=== PATIENT | female | born 1965 | race African-American/Black ===

== ENCOUNTER 2016-11-25 16:48 | Emergency (ER) | payer BC, OTHER ==
[~2016-11-25] VITALS: Ht 152.4 cm; Wt 67.0 kg
[2016-11-25 17:00] VITALS: Ht 152.4 cm; Wt 67.0 kg
[2016-11-25] MEDS ORDERED: SOD CHLORIDE 0.9% 1,000 ML IV STA (17:34)
[2016-11-25] MEDS ORDERED: ONDANSETRON 4 MG INJ IV STA (17:34)
[2016-11-25] MEDS ORDERED: morphine 2 MG INJ IV STA (17:34)
[2016-11-25] MEDS ORDERED: IBUP100T46 PO (17:40)
[2016-11-25 17:59] LABS: ADD SCAN DIFF NO
[2016-11-25 18:01] LABS: BASOPHILS % 0.5 % (0.0-2.0); EOSINOPHILS % 0.4 % (0.0-7.0); HEMATOCRIT 39.4 % (37.0-47.0); HEMOGLOBIN 12.9 g/dl (12.0-16.0); LYMPHOCYTES # 1.2 10^3/ul (0.8-2.9); LYMPHOCYTES % 21.9 % (15.0-51.0); MEAN CORPUSCULAR HEMOGLOBIN 27.6 pg (29.0-33.0); MEAN CORPUSCULAR HGB CONC 32.7 g/dl (32.0-37.0); MEAN CORPUSCULAR VOLUME 84.4 fl (82.0-101.0); MEAN PLATELET VOLUME 10.4 fl (7.4-10.4); MONOCYTE # 0.4 10^3/ul (0.3-0.9); MONOCYTES % 6.6 % (0.0-11.0); NEUTROPHIL # 3.9 10^3/ul (1.6-7.5); NEUTROPHILS % 70.2 % (39.0-77.0); PLATELET COUNT 277 10^3/UL (140-415); RED BLOOD COUNT 4.67 10^6/ul (4.20-5.40); RED CELL DISTRIBUTION WIDTH 14.6 % (11.5-14.5); WHITE BLOOD COUNT 5.5 10^3/ul (4.8-10.8)
[2016-11-25 18:13] LABS: POTASSIUM 3.4 mmol/L (3.5-5.1)
[2016-11-25 18:15] LABS: CREATININE 0.74 mg/dl (0.44-1.00)
[2016-11-25 18:16] LABS: ALBUMIN/GLOBULIN RATIO 1.56; BILIRUBIN,INDIRECT 0.6 mg/dl (0-1.1); BILIRUBIN,TOTAL 0.6 mg/dl (0.2-1.3); CALCIUM 9.8 mg/dl (8.4-10.2); TOTAL PROTEIN 8.2 g/dl (6.1-8.1)
[2016-11-25 18:36] LABS: ADD UMIC YES; URINE BILIRUBIN (Dip) NEGATIVE (NEGATIVE); URINE BLOOD (Dip) TRACE (NEGATIVE); URINE COLOR LT. YELLOW (YELLOW); URINE GLUCOSE (Dip) NEGATIVE (NEGATIVE); URINE KETONES (Dip) NEGATIVE (NEGATIVE); URINE LEUKOCYTE ESTERASE (Dip) NEGATIVE (NEGATIVE); URINE NITRITE (Dip) NEGATIVE (NEGATIVE); URINE TOTAL PROTEIN (Dip) NEGATIVE (NEGATIVE); URINE UROBILINOGEN (Dip) 0.2 E.U./dL (0.1-1.0)
[2016-11-25 19:03] LABS: BACTERIA,URINE FEW
--- NOTE | 2016-11-25 20:11 | RADRPT ---
PROCEDURE: CT Abdomen and Pelvis without contrast. CLINICAL INDICATION: Pain. TECHNIQUE: CT scan of the abdomen and pelvis was performed on a multidetector slice CT scanner. No intravenous contrast material was utilized. Sagittal and coronal reformatted images were obtained fr om the axial source images. Images were reviewed on a high-resolution PACS workstation. Exam CTDlvol = 8 mGy and DLP = 350 a Gy-cm. One of the following 3 dose reduction techniques were used: Automate d exposure control; adjustment of the mA and/or kV according to patient size; or use of iterative re construction technique. COMPARISON: None. FINDINGS: There is moderate stool throughout the colon. There is no obstruction or ileus. There is possible mild left and sigmoid colon wall thickening/colitis versus incomplete distension. The appendix is n ot distinctly visualized. There is no definite secondary evidence of appendicitis.. There is no niels dence for diverticulitis. There is mild pelvic free fluid. The liver is overall normal in size. No intrahepatic lesions are identified. The gallbladder is norm al in appearance. There is no definite biliary ductal dilation. Pancreas is normal in appearance. Th e spleen is unremarkable.. There are no adrenal masses. The aorta is normal caliber. Kidneys are normal in appearance without hydronephrosis, mass or calculus. There is no perinephric c ollection. Ureters are of normal caliber and without evidence for an obstructing calculus The urinar y bladder is contracted. The uterus and ovaries are not well characterized. Uterus is enlarged and 10.8 x 8.2 x 8.9 cm. The re is a 3.8 cm slightly dense probable fibroid in the anterior body and fundus. There is a probable exophytic 1.7 cm right fundal fibroid... Limited evaluation lung bases is unremarkable. There are mild degenerative facet changes of the lower lumbar spine. IMPRESSION: 1. Mild left and sigmoid colon wall thickening/colitis versus incomplete distension. 2. Mild pelvic free fluid. 3. Moderate stool throughout the colon. No obstruction or ileus. 4. Appendix not distinctly visualized. No secondary evidence for appendicitis. 5. No evidence for diverticulitis. 6. Enlarged uterus with multiple probable fibroids. Ovaries not adequately visualized. 7. Mild degenerative changes of the lower lumbar spine. RPTAT: HMVK .Reddy Dunn MD, MD Date Time Electronically viewed and signed by .Reddy Dunn MD, MD on 11/25/2016 20:10 .K/
[2016-11-25 21:15] VITALS: BP 147/79; PULSE 58; RESP 18
[2016-11-25] MEDS ORDERED: POLY17PO6 PO (21:30)
[2016-11-25] MEDS ORDERED: NAPR-688 PO (21:31)
[2016-11-25] MEDS ORDERED: CEPH-443 PO (21:31)
--- NOTE | 2016-11-25 21:51 | ERD ---
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 She had several episodes of diarrhea and then got feeling of tingling and hand shaking mild bilateral arms. She had no chest pain or shortness of breath. Had nausea but no vomiting. Denies headache or dizziness. States that she has abdominal pain is going on for about 7 years and her left abdomen with a feeling of fullness as well. Also has a burning suprapubic pain. ROS All systems reviewed and are negative except as per history of present illness. Medications Home Meds Active Scripts Naproxen* (Naproxen*) 500 Mg Tablet, 500 MG PO BID, #20 TAB Prov:GARY NICHOLSON 11/25/16 Cephalexin* (Keflex*) 500 Mg Capsule, 500 MG PO TID for 3 Days, CAP Prov:BHARATGARY 11/25/16 Polyethylene Glycol* (Miralax*) 17 Gm Powd.pack, 17 GM PO DAILY, #7 PACKET Prov:GARY NICHOLSON 11/25/16 Reported Medications Ibuprofen* (Ibuprofen*) 100 Mg Tab.chew, 200 MG PO Q6 Y for PAIN, TAB.CHEW 11/25/16 Allergies Allergies: Coded Allergies: No Known Allergy (Unverified , 11/25/16) PMhx/Soc Medical and Surgical Hx: pt denies Medical Hx, pt denies Surgical Hx Hx Alcohol Use: No Hx Substance Use: No Hx Tobacco Use: No Smoking Status: Never smoker Physical Exam Vitals Vital Signs Date Time Temp Pulse Resp B/P Pulse Ox O2 Delivery O2 Flow Rate FiO2 11/25/16 21:15 58 18 147/79 100 Room Air 11/25/16 17:00 98.1 74 20 141/90 99 Physical Exam Const: [] No distress Head: Atraumatic Eyes: Normal Conjunctiva ENT: Normal External Ears, Nose and Mouth. Resp: Clear to auscultation bilaterally Cardio: Regular rate and rhythm, no murmurs Abd: Soft, mild left-sided abdominal tenderness with mild suprapubic tenderness, no guarding or rebound, non distended. Normal bowel sounds Skin: No petechiae or rashes Back: No midline or flank tenderness Ext: No cyanosis, or edema Neur: Awake and alert and oriented 3, no focal deficits Psych: Normal Mood and Affect Result Diagram: 11/25/16174911/25/161749 Results 24 hrs Laboratory Tests Test 11/25/16 17:50 11/25/16 18:02 White Blood Count 5.510^3/ul Red Blood Count 4.6710^6/ul Hemoglobin 12.9g/dl Hematocrit 39.4% Mean Corpuscular Volume 84.4fl Mean Corpuscular Hemoglobin 27.6pg Mean Corpuscular Hemoglobin Concent 32.7g/dl Red Cell Distribution Width 14.6% Platelet Count 64435^3/UL Mean Platelet Volume 10.4fl Neutrophils % 70.2% Lymphocytes % 21.9% Monocytes % 6.6% Eosinophils % 0.4% Basophils % 0.5% Nucleated Red Blood Cells % 0.0/100WBC Neutrophils # 3.910^3/ul Lymphocytes # 1.210^3/ul Monocytes # 0.410^3/ul Eosinophils # 0.010^3/ul Basophils # 0.010^3/ul Nucleated Red Blood Cells # 0.010^3/ul Sodium Level 142mmol/L Potassium Level 3.4mmol/L Chloride Level 104mmol/L Carbon Dioxide Level 25mmol/L Anion Gap 16 Blood Urea Nitrogen 8mg/dl Creatinine 0.74mg/dl Glucose Level 123mg/dl Calcium Level 9.8mg/dl Total Bilirubin 0.6mg/dl Direct Bilirubin 0.00mg/dl Indirect Bilirubin 0.6mg/dl Aspartate Amino Transf (AST/SGOT) 21IU/L Alanine Aminotransferase (ALT/SGPT) 23IU/L Alkaline Phosphatase 61IU/L Total Protein 8.2g/dl Albumin 5.0g/dl Globulin 3.20g/dl Albumin/Globulin Ratio 1.56 Lipase 65U/L Urine Color LT. YELLOW Urine Clarity CLEAR Urine pH 8.0 Urine Specific [place] 1.010 Urine Ketones NEGATIVE Urine Nitrite NEGATIVE Urine Bilirubin NEGATIVE Urine Urobilinogen 0.2 E.U./dL Urine Leukocyte Esterase NEGATIVE Urine Microscopic RBC 2-5/HPF Urine Microscopic WBC 0-2/HPF Urine Epithelial Cells FEW Urine Bacteria FEW Urine Hemoglobin TRACE Urine Glucose NEGATIVE% Urine Total Protein NEGATIVE Current Medications Medications (Trade) Dose Ordered Sig/Aleksey Route PRN Reason Start Time Stop Time Status Last Admin Dose Admin Sodium Chloride (NS) 1,000 ml @ 1,000 mls/hr Q1H STAT IV 11/25/16 17:34 11/25/16 18:33 DC Morphine Sulfate (morphine) 2 mg ONCE STAT IV 11/25/16 17:34 11/25/16 17:37 DC Ondansetron HCl (Zofran Inj) 4 mg ONCE STAT IV 11/25/16 17:34 11/25/16 17:37 DC Procedures/MDM Acute viral enteritis in a patient with significant constipation. On repeat questioning that she said that she has normally constipated. She tries to drink a lot of water has not taken anything for it. She is also aware that she has uterine fibroids. She is treated with a liter of normal saline after which her hand tingling and shaking went away as it was likely from dehydration from some any bowel movements and nausea. In spite of having gastroenteritis she does have a significant stool but in the colon on the Rochelle prescribed her MiraLAX. She was worried about a burning sensation urination worried about possible urinary tract infection I'm going to give her Keflex for 3 days. Yumiko discharging with naproxen for the colitis and discomfort. Having her follow up with her primary care doctor to obtain in gastroenterology referral as she may benefit from colonoscopy. CT abdomen and pelvis interpretation: Retained stool throughout every part of the colon except for the sigmoid colon, mild wall thickening the sigmoid colon consistent with enteritis, uterine fibroids, no obstruction, no free air, no fractures Departure Diagnosis: Primary Impression: Chronic abdominal pain Additional Impression: Diarrhea Condition: Stable Patient Instructions: Treating Diarrhea, Constipation (Adult) Referrals: [facility] YOU HAVE RECEIVED A MEDICAL SCREENING EXAM AND THE RESULTS INDICATE THAT YOU DO NOT HAVE A CONDITION THAT REQUIRES URGENT TREATMENT IN THE EMERGENCY DEPARTMENT. FURTHER EVALUATION AND TREATMENT OF YOUR CONDITION CAN WAIT UNTIL YOU ARE SEEN IN YOUR DOCTORS OFFICE WITHIN THE NEXT 1-2 DAYS. IT IS YOUR RESPONSIBILITY TO MAKE AN APPOINTMENT FOR FOLOW-UP CARE. IF YOU HAVE A PRIMARY DOCTOR --you should call your primary doctor and schedule an appointment IF YOU DO NOT HAVE A PRIMARY DOCTOR YOU CAN CALL OUR PHYSICIAN REFERRAL HOTLINE AT IF YOU CAN NOT AFFORD TO SEE A PHYSICIAN YOU CAN CHOSE FROM THE FOLLOWING [facility] [address] [facility] [address] [facility] [address] [facility] [address] [facility] [facility] [phone] [facility]. [facility] [address] Additional Instructions: Call your primary care doctor TOMORROW for an appointment during the next 2-3 days. Obtain a referral for a assistant site manager. See the doctor sooner or return here if your condition worsens before your appointment time. GARY NICHOLSON DO Nov 25, 2016 21:51
== END 2016-11-25 21:45 | disposition home or self-care (01) ==
LOC: E/R 16:48 → EEVIPCON 16:48 → E/R 21:45
DX: R10.32 Left lower quadrant pain (principal); R11.0 Nausea
CPT/HCPCS: 36415; 74176; 80053; 81001; 83690; 85025; 99284; J7030; 81003

== ENCOUNTER → 2017-01-20 | Outpatient (CLI) | payer BC ==
[~2017-01-20] MED LIST: CEPH-443 PO; IBUP100T46 PO; NAPR-688 PO; POLY17PO6 PO
[2017-01-20 13:19] LABS: ADD UMIC YES; URINE BILIRUBIN (Dip) NEGATIVE (NEGATIVE); URINE BLOOD (Dip) TRACE (NEGATIVE); URINE COLOR LT. YELLOW (YELLOW); URINE GLUCOSE (Dip) NEGATIVE (NEGATIVE); URINE KETONES (Dip) NEGATIVE (NEGATIVE); URINE LEUKOCYTE ESTERASE (Dip) NEGATIVE (NEGATIVE); URINE NITRITE (Dip) NEGATIVE (NEGATIVE); URINE TOTAL PROTEIN (Dip) NEGATIVE (NEGATIVE); URINE UROBILINOGEN (Dip) 0.2 E.U./dL (0.1-1.0)
[2017-01-20 13:41] LABS: ALANINE AMINOTRANSFERASE 29 IU/L (13-69); ALBUMIN 4.9 g/dl (3.3-4.9); ALBUMIN/GLOBULIN RATIO 1.88; ALKALINE PHOSPHATASE 63 IU/L (42-121); AMYLASE 81 U/L (11-123); ANION GAP 11 (8-16); ASPARTATE AMINO TRANSFERASE 25 IU/L (15-46); BILIRUBIN,INDIRECT 0.9 mg/dl (0-1.1); BILIRUBIN,TOTAL 0.9 mg/dl (0.2-1.3); BLOOD UREA NITROGEN 8 mg/dl (7-20); CALCIUM 9.6 mg/dl (8.4-10.2); CARBON DIOXIDE 29 mmol/L (21-31); CHLORIDE 106 mmol/L (97-110); CHOL/HDL RATIO 2.6 RATIO; CHOLESTEROL 200 mg/dl (100-200); CREATININE 0.74 mg/dl (0.44-1.00); GLUCOSE 89 mg/dl (70-220); HDL CHOLESTEROL 75 mg/dl (37-92); POTASSIUM 3.8 mmol/L (3.5-5.1); SODIUM 142 mmol/L (135-144); TOTAL PROTEIN 7.5 g/dl (6.1-8.1); TRIGLYCERIDES 45 mg/dl (0-149)
[2017-01-20 13:50] LABS: IRON 75 ug/dl (35-150)
[2017-01-20 13:59] LABS: TOTAL IRON BINDING CAPACITY 427 ug/dl (241-421)
--- NOTE | 2017-01-20 14:05 | RADRPT ---
Vent Rate: 57 bpm RR Interval: 0 msec [place] Interval: 144 msec QRS Duration: 86 msec QT Interval: 454 msec QTC Interval: 441 msec P-R-T [place]: 67 - 38 - 39 degrees Sinus bradycardia T wave abnormality, consider anterior ischemia Abnormal ECG Electronically Signed By: Reddy Sanchez [id number]
[2017-01-20 16:34] LABS: FERRITIN 6.8 ng/ml (6.2-137.0); THYROID STIMULATING HORMONE 0.776 MIU/L (0.465-4.680)
[2017-01-20 17:02] LABS: C-REACTIVE PROTEIN < 0.5 mg/dl (0.0-0.9)
== END | disposition home or self-care (01) ==
LOC: LAB 12:26
PROVIDERS: ATTEND Internal Medicine
DX: R07.9 Chest pain, unspecified (principal)
CPT/HCPCS: 80053; 80061; 81001; 82150; 82728; 83540; 84443; 85651; 86140; 93005

== ENCOUNTER → 2017-02-19 | Outpatient (CLI) | payer BC ==
[2017-02-19 12:59] LABS: ADD UMIC YES; UR ASCORBIC ACID NEGATIVE (NEGATIVE); UR BACTERIA FEW /HPF (NONE SEEN); UR BILIRUBIN (Dip) NEGATIVE (NEGATIVE); UR BLOOD (Dip) 1+ mg/dL (NEGATIVE); UR CLARITY CLEAR (CLEAR); UR COLOR STRAW (YELLOW); UR GLUCOSE (Dip) NEGATIVE (NEGATIVE); UR KETONES (Dip) NEGATIVE (NEGATIVE); UR LEUKOCYTE ESTERASE (Dip) NEGATIVE Leu/ul (NEGATIVE); UR NITRITE (Dip) NEGATIVE (NEGATIVE); UR RBC 1 /HPF (0-5); UR SPECIFIC GRAVITY (Dip) 1.004 (1.003-1.030); UR SQUAMOUS EPITHELIAL CELL FEW /HPF (FEW); UR TOTAL PROTEIN (Dip) NEGATIVE (NEGATIVE); UR UROBILINOGEN (Dip) NEGATIVE (NEGATIVE)
== END | disposition home or self-care (01) ==
LOC: LAB 12:18
PROVIDERS: ATTEND Internal Medicine
DX: R31.9 Hematuria, unspecified (principal)
CPT/HCPCS: 81001

== ENCOUNTER 2017-02-25 12:43 | Day surgery (SDC) | payer BC ==
[~2017-02-25] VITALS: Ht 152.4 cm; Wt 57.8 kg
[2017-02-25] MEDS ORDERED: ACET325T33 PO (13:41)
[2017-02-25 14:02] VITALS: BP 161/80; PULSE 52; RESP 16
[2017-02-25] MEDS ORDERED: LIDOCAINE 2% (SDV) 5 ML INJ ONE (14:14)
[2017-02-25] MEDS ORDERED: PROPOFOL 40 ML ONE (14:14)
[2017-02-25 15:24] VITALS: BP 149/85; PULSE 55; RESP 17
--- NOTE | 2017-02-26 05:50 | GILP ---
DATE OF PROCEDURE: 02/25/2017 PROCEDURE PERFORMED: Colonoscopy. INDICATION: Abnormal sigmoid colon on CT scan. FINDINGS: After informed consent, the patient was placed in the left lateral position and intubated per Anesthesia. The Olympus pediatric video colonoscope was easily passed into the rectum. The instrument was advanced to the sigmoid colon which appeared somewhat muscular. The instrument was advanced to the descending, transverse, ascending colon to the cecum. The appendiceal orifice and ileocecal valve were identified. These appeared normal. The ileocecal valve was traversed. No was encountered. The instrument was slowly removed to the ascending, transverse, and descending colon. The mucosa throughout appeared normal. The preparation was good. In the sigmoid colon, there were no gross mucosal abnormalities except for a 2-mm polypoid lesion, removed in total with biopsy forceps. In the rectum, turnaround procedure was performed. No additional lesions were noted. The instrument was removed from the rectum. The patient tolerated the procedure well. COMPLICATIONS: None. IMPRESSION: 1. No evidence of abnormality seen on CT scan. 2. A 2-mm sigmoid colon polyp, removed by biopsy technique. PLAN: I have instructed the patient to follow up pending pathology. START TIME: 1419 hours. CECAL TIME: 1426 hours. FINISH TIME: 1440 hours WITHDRAWAL TIME: 14 minutes. PREPARATION: Good. Dictated By: Zion Bassett MD /carlos/hilary /Document#: [id number] ; Two copies Dr. Bassett
== END 2017-02-25 16:19 | disposition home or self-care (01) ==
LOC: GIL 12:43
PROVIDERS: ATTEND Internal Medicine Gastroenterology
DX: D12.5 Benign neoplasm of sigmoid colon (principal); F41.9 Anxiety disorder, unspecified
CPT/HCPCS: 84703

== ENCOUNTER → 2017-03-19 | Outpatient (CLI) | payer BC ==
[~2017-03-19] MED LIST changes: +ACET325T33 PO; -CEPH-443 PO; -POLY17PO6 PO
--- NOTE | 2017-03-20 08:45 | RADRPT ---
Echocardiogram Report Patient Name: DORETHA GRANADOS Gender: Female Date: 1965 Study Date: 19-Mar-2017 Underwriter: Jose Antonio Chen RDCS Location: EKG Ref. Physician: CHARLIE ETIENEN Quality: Good Procedures: Transthoracic echocardiogram with complete 2D, M-Mode, and doppler examination. Indications: Chest Pain. 2D/M Mode Doppler Measurement Value Normal Ranges Measurement Value Normal Ranges LVIDd 2D 4.5 3.5 - 5.6 cm AV Peak Nelson 1.6 m/sec LVIDs 2D 2.3 2.1 - 4.1 cm AV Peak PG 10.5 mmHg LVPWd 2D 0.8 0.6 - 1.1 cm LVOT Peak Nelson 1.2 m/sec IVSd 2D 0.8 0.6 - 1.1 cm LVOT Peak PG 5.6 mmHg AoR Diam 2D 2.3 2.0 - 3.7 cm MV E Peak Nelson 1.0 m/sec EDV 2D 92.3 cm3 MV A Peak Nelson 0.6 m/sec ESV 2D 12.4 cm3 MV E/A 1.7 LA Dimen 2D 3.5 2.3 - 4.0 cm MV Decel Time 226 msec MV Decel Darke 5 MV E/A 1.7 TR Peak Nelson 2.7 m/sec TR Peak PG 29.7 mmHg RVSP 45.0 mmHg Findings Left Ventricle: Normal left ventricular systolic function. Normal left ventricular cavity size. Normal left ventricular wall thickness. Ejection fraction is visually estimated at 65 %. Tissue Doppler/Mitral Doppler indices are within normal limits. Right Ventricle: Normal right ventricular size. Normal right ventricular systolic function. Left Atrium: The left atrium is normal in size. Right Atrium: The right atrium is normal in size. Mitral Valve: Normal appearance and function of the mitral valve with trace physiologic regurgitation. Aortic Valve: Trileaflet aortic valve. Tricuspid Valve: Normal appearance of the tricuspid valve. Right ventricular systolic pressure is consistent with mild pulmonary hypertension. Estimated peak PA systolic pressure 35 mmHg. There is mild tricuspid regurgitation. Pulmonic Valve: Normal pulmonic valve appearance. Pericardium: Normal pericardium with no significant pericardial effusion. Aorta: Normal aortic root. IVC: Dilated IVC with respiratory collapse consistent with elevated right atrial pressure. Conclusions Normal left ventricular systolic function. Normal left ventricular cavity size. Normal left ventricular wall thickness. Ejection fraction is visually estimated at 65 %. Tissue Doppler/Mitral Doppler indices are within normal limits. Normal right ventricular size. Normal right ventricular systolic function. The left atrium is normal in size. Normal appearance of the tricuspid valve. Right ventricular systolic pressure is consistent with mild pulmonary hypertension. Estimated peak PA systolic pressure 35 mmHg. There is mild tricuspid regurgitation. Normal pericardium with no significant pericardial effusion. Dilated IVC with respiratory collapse consistent with elevated right atrial pressure. Electronically Signed By: Charlie Etienne 20-Mar-2017 08:43:51 -0700 Patient Name: DORETHA GRANADOS Study Date: 19-Mar-2017 [id number]
== END | disposition home or self-care (01) ==
LOC: EKG 11:18
PROVIDERS: ATTEND Internal Medicine Interventional Cardiology
DX: R07.9 Chest pain, unspecified (principal)
CPT/HCPCS: 93306

== ENCOUNTER → 2017-04-01 | Outpatient (CLI) | payer BC ==
[~2017-04-01] MED LIST changes: +CEPH-443 PO; +POLY17PO6 PO
== END | disposition home or self-care (01) ==
LOC: LAB 12:10
PROVIDERS: ATTEND Obstetrics & Gynecology
DX: E34.9 Endocrine disorder, unspecified (principal)
CPT/HCPCS: 83001

== ENCOUNTER 2017-08-29 10:07 | Day surgery (SDC) | END 2017-08-29 17:13 | disposition home or self-care (01) ==

== ENCOUNTER 2018-06-17 15:44 | Emergency (ER) | END 2018-06-17 21:13 | disposition home or self-care (01) ==

== ENCOUNTER → 2018-07-07 | Outpatient (CLI) | END | disposition home or self-care (01) ==

== ENCOUNTER → 2018-07-08 | Outpatient (CLI) | payer BC ==
[~2018-07-08] MED LIST changes: -CEPH-443 PO; +DICY10CA40 PO; +HYDR-4011 PO; +IBUP100T3 PO; -IBUP100T46 PO; +ONDA4TAB14 PO; -POLY17PO6 PO
== END | disposition home or self-care (01) ==
LOC: U/S 11:22
PROVIDERS: ATTEND Internal Medicine
DX: R10.11 Right upper quadrant pain (principal)

== ENCOUNTER → 2018-07-09 | Outpatient (CLI) | END | disposition home or self-care (01) ==

== ENCOUNTER → 2018-10-07 | Outpatient (CLI) | payer BC | END | disposition home or self-care (01) | LOC: LAB 13:39 | PROVIDERS: ATTEND Internal Medicine | DX: M79.673 Pain in unspecified foot (principal); M54.5 Low back pain; G43.909 Migraine, unspecified, not intractable, without status migrainosus | CPT/HCPCS: 82607; 82746; 83036; 85025; 85651; 86320 ==